=== PATIENT | male | born 1985 | race African-American/Black ===

== ENCOUNTER 2018-01-04 01:26 | Emergency (ER) | payer SELFPAY ==
[~2018-01-04] VITALS: Ht 167.6 cm; Wt 71.0 kg
[2018-01-04] MEDS ORDERED: KETOROLAC 30MG/ML VIAL IV ONE (08:30)
[2018-01-04] MEDS ORDERED: METOCLOPRAMIDE HCL 10MG/2ML VIAL IV ONE (08:30)
[2018-01-04] MEDS ORDERED: MORPHINE SULFATE 4 MG/ML CPJ (NOT FOR IM USE) IV ONE (08:30)
[2018-01-04 08:48] LABS: CHLORIDE 104 mEq/L (98-107)
[2018-01-04 08:59] LABS: BASOPHILS % 0.8 % (0.0-2.0); EOSINOPHILS % 3.2 % (0.0-5.0); HEMATOCRIT. 42.7 % (42.0-52.0); HEMOGLOBIN. 14.8 g/dL (14.0-18.0); LYMPHOCYTES % 40.8 % (20.0-50.0); MEAN CORPUSCULAR HEMOGLOBIN 31.4 pg (28.0-32.0); MEAN CORPUSCULAR VOLUME 90.7 fL (80.0-94.0); MEAN PLATELET VOLUME 8.8 fl (7.4-10.4); MONOCYTES % 8.9 % (2.0-8.0); NEUTROPHILS % 46.3 % (40.0-76.0); PLATELET 192 x1000/uL (130-400)
[2018-01-04 09:52] LABS: CLARITY URINE CLEAR (CLEAR); COLOR URINE YELLOW (YELLOW); KETONES URINE TRACE (NEGATIVE); LEUKOCYTE ESTERASE URINE TRACE (NEGATIVE); NITRITE URINE NEGATIVE (NEGATIVE); OCCULT BLOOD URINE NEGATIVE (NEGATIVE); PH URINE 5.5 (4.5-8.0); PROTEIN URINE NEGATIVE (NEGATIVE); SPECIFIC GRAVITY URINE 1.033 (1.005-1.030)
[2018-01-04] MEDS ORDERED: HYDROCODONE/ACETAMINOPHEN 10/325MG TABLET PO ONE (13:45)
[2018-01-04 14:43] VITALS: BP 128/70
== END 2018-01-04 14:49 | disposition home or self-care (01) ==
LOC: ER 01:26
DX: R51 Headache (principal); N45.1 Epididymitis; N45.2 Orchitis; N39.0 Urinary tract infection, site not specified
CPT/HCPCS: 36415; 70450; 76857; 76870; 80053; 81003; 85025; 87086; 93976; 96374; 96375; 99285; J1885; J2270; J2765